=== PATIENT | male | born 1960 | race African-American/Black ===

== ENCOUNTER 2017-01-03 09:44 | Observation (INO) | payer OTHER ==
[2017-01-03] VITALS (10 sets, daily range): BP systolic 119–164; BP diastolic 71–84; PULSE 60–70; RESP 13–24; TEMP 97.7–98; O2SAT 95–100
[~2017-01-03] VITALS: Ht 175.3 cm; Wt 71.5 kg
[~2017-01-03 09:44] MED LIST: 1-ME1LIQ PO; ASPI81TA82 PO; CIAL5TAB PO; LISI-360 PO; MELO7.5T PO
[2017-01-03] MEDS ORDERED: ASPIRIN 81 MG CHEW TAB CHEW ONE (10:00)
[2017-01-03] MEDS ORDERED: SODIUM CHLORIDE 0.9% FLUSH 5 ML FLUSH IVF PRN ×2 (10:00→12:45)
[2017-01-03] MEDS ORDERED: LISI10TA3 PO (10:02)
[2017-01-03] MEDS ORDERED: VITA100T15 PO (10:02)
[2017-01-03] MEDS ORDERED: AMLO5TAB2 PO (10:02)
[2017-01-03] MEDS ORDERED: VITA400T2 PO (10:02)
[2017-01-03] MEDS ORDERED: ASPI81TA81 PO (10:02)
[2017-01-03] MEDS: NITROGLYCERIN 0.4 MG SL 25 TABS/BTL SL SCH ×3 (10:21→11:37)
--- NOTE | 2017-01-03 10:25 | RADRPT ---
EXAM DATE/TIME: 01/03/2017 10:10 [place] COMPARISON: No previous studies available for comparison. INDICATIONS : Short of breath, right side chest pain MEDICAL HISTORY : Hypertension. Diabetes mellitus type II. SURGICAL HISTORY : None. ENCOUNTER: Initial ACUITY: 2 weeks PAIN SCORE: 7/10 LOCATION: Bilateral chest FINDINGS: A single view of the chest demonstrates the lungs to be symmetrically aerated without evidence of mas s, infiltrate or effusion. The cardiomediastinal contours are unremarkable. Osseous structures are intact. CONCLUSION: No evidence of acute cardiopulmonary disease. Brayden Brock MD on January 03, 2017 at 10:23 Board Certified Radiologist. This report was verified electronically.
[2017-01-03 10:30] LABS: AUTOMATED NEUTROPHIL # 1.9 TH/MM3 (1.8-7.7); BASOPHIL % 0.5 % (0.0-2.0); EOSINOPHIL # 0.2 TH/MM3 (0-0.4); EOSINOPHIL % 5.5 % (0.0-4.0); HEMATOCRIT 42.2 % (39.0-51.0); HEMO FLAGS DIFF FINAL; LYMPHOCYTE # 1.4 TH/MM3 (1.0-4.8); MEAN CELL VOLUME 92.1 FL (80.0-100.0); MEAN CORPUSCULAR HEMOGLOBIN 31.1 PG (27.0-34.0); MEAN CORPUSCULAR HGB CONC 33.8 % (32.0-36.0); MONO % 17.8 % (0.0-8.0); NEUT % 44.2 % (16.0-70.0); PLATELET COUNT 194 TH/MM3 (150-450); RED BLOOD COUNT 4.58 MIL/MM3 (4.50-5.90); RED CELL DISTRIBUTION WIDTH 15.9 % (11.6-17.2); WHITE BLOOD COUNT 4.4 TH/MM3 (4.0-11.0)
[2017-01-03 10:52] LABS: APTT (PATIENT) 25.7 SEC (24.3-30.1); INTERNATIONAL NORMALIZED RATIO 1.1 RATIO; PROTHROMBIN TIME - PATIENT 11.9 SEC (9.8-11.6)
[2017-01-03 10:56] LABS: ANION GAP 6 MEQ/L (5-15); AST (GOT) 17 U/L (15-37); BICARBONATE 29.2 MEQ/L (21.0-32.0); BLOOD UREA NITROGEN 15 MG/DL (7-18); CHLORIDE 106 MEQ/L (98-107); GLOMERULAR FILTRATION RATE 71 ML/MIN (>89); POTASSIUM 4.1 MEQ/L (3.5-5.1); SODIUM (NA) 141 MEQ/L (136-145)
[2017-01-03 11:01] LABS: ALKALINE PHOSPHATASE 72 U/L (45-117); ALT (GPT) 20 U/L (12-78); CREATINE KINASE 265 U/L (39-308); TOTAL BILIRUBIN ADULT 0.4 MG/DL (0.2-1.0)
[2017-01-03 11:14] LABS: CKMB 2.4 NG/ML (0.5-3.6)
--- NOTE | 2017-01-03 11:50 | PD ---
HPI Chief Complaint: Chest Pain Time Seen by Provider: 09:59 Travel History International Travel<30 days: No Contact w/Intl Traveler<30days: No Traveled to known affect area: No History of Present Illness HPI Patient 56-year-old male presents with intermittent chest pain for the past few weeks. Patient states Fairly substantial this morning. Patient describes a tight sensation in the left side of his chest radiating down his left arm, it was some nausea as well as shortness breath without any vomiting. Patient states he went to the [facility] and was told he had an abnormal EKG and was set up with a specialist but nontoxic 25 January. Patient states he continues to have pain intermittently. Patient states he was just sitting doing nothing when the pain started today. Questionable history of cocaine use in the past per the review the records.. Patient is a cigar smoker, history diabetes have blood pressure and high cholesterol. Last stress test according to records was 2010. PFSH Past Medical History Hx Anticoagulant Therapy: Yes Heart Rhythm Problems: Yes (PATIENT STATES HIS HEART OCCASSIONALY RACES) Cardiac Catheterization: No Cardiovascular Problems: Yes High Cholesterol: Yes Chest Pain: Yes Congestive Heart Failure: No Diabetes: Yes Patient Takes Glucophage: Yes Diminished Hearing: No Hypertension: Yes Respiratory: Yes Myocardial Infarction: No Past Surgical History Coronary Artery Bypass Graft: No Social History Alcohol Use: No Tobacco Use: Yes (CIGAR) Substance Use: No Allergies-Medications (Allergen,Severity, Reaction): Coded Allergies: Bee Sting (Verified Allergy, Severe, HIVES, 01/03/17) Epinephrine (Verified Allergy, Severe, SEIZURES, 01/03/17) Reported Meds & Prescriptions Reported Meds & Active Scripts Active Reported Vitamin D (Cholecalciferol) 400 Unit Tab Unknown Dose PO DAILY Vitamin B12 (Cyanocobalamin) 100 Mcg Tab Unknown Dose PO DAILY Lisinopril 10 Mg Tab 10 Mg PO DAILY Amlodipine (Amlodipine Besylate) 5 Mg Tab 5 Mg PO DAILY Aspir-81 (Aspirin) 81 Mg Tabdr 81 Mg PO DAILY Review of Systems Except as stated in HPI: all other systems reviewed are Neg Physical Exam Narrative GENERAL: Well-developed well-nourished no apparent distress SKIN: Warm and dry. HEAD: Atraumatic. Normocephalic. EYES: Pupils equal and round. No scleral icterus. No injection or drainage. ENT: No nasal bleeding or discharge. Mucous membranes pink and moist. NECK: Trachea midline. No JVD. CARDIOVASCULAR: Regular rate and rhythm. No murmur appreciated. 2+ bilateral equal pulses in all 4 extremities. RESPIRATORY: No accessory muscle use. Clear to auscultation. Breath sounds equal bilaterally. GASTROINTESTINAL: Abdomen soft, non-tender, nondistended. Hepatic and splenic margins not palpable. MUSCULOSKELETAL: No obvious deformities. No clubbing. No cyanosis. No edema. NEUROLOGICAL: Awake and alert. No obvious cranial nerve deficits. Motor grossly within normal limits. Normal speech. PSYCHIATRIC: Appropriate mood and affect; insight and judgment normal. Data Data Last Documented VS Vital Signs Date Time Temp Pulse Resp B/P Pulse Ox O2 Delivery O2 Flow Rate FiO2 01/03/17 11:39 64 15 126/73 99 Nasal Cannula 2.0 01/03/17 09:48 97.7 Orders Electrocardiogram (01/03/17 ) Ckmb (Isoenzyme) Profile (01/03/17 09:59) Complete Blood Count With Diff (01/03/17 09:59) Comprehensive Metabolic Panel (01/03/17 09:59) Magnesium (Mg) (01/03/17 09:59) Prothrombin Time / Inr (Pt) (01/03/17 09:59) Act Partial Throm Time (Ptt) (01/03/17 09:59) Troponin I (01/03/17 09:59) Lipase (01/03/17 09:59) Chest, Single Ap (01/03/17 09:59) Ecg Monitoring (01/03/17 09:59) Bilateral Bp Monitoring (01/03/17 09:59) Iv Access Insert/Monitor (01/03/17 09:59) Oximetry (01/03/17 09:59) Oxygen Administration (01/03/17 09:59) Sodium Chloride 0.9% Flush (Ns Flush) (01/03/17 10:00) Nitroglycerin Sl (Nitrostat Sl) (01/03/17 10:00) Aspirin Chew (Aspirin Chew) (01/03/17 10:00) CKMB (01/03/17 10:15) CKMB% (01/03/17 10:15) Admit Order (Ed Use Only) (01/03/17 ) Drug Screen, Random Urine (01/03/17 11:38) Labs Laboratory Tests Test 01/03/17 10:15 White Blood Count 4.4 TH/MM3 Red Blood Count 4.58 MIL/MM3 Hemoglobin 14.3 GM/DL Hematocrit 42.2 % Mean Corpuscular Volume 92.1 FL Mean Corpuscular Hemoglobin 31.1 PG Mean Corpuscular Hemoglobin 33.8 % Concent Red Cell Distribution Width 15.9 % Platelet Count 194 TH/MM3 Mean Platelet Volume 8.0 FL Neutrophils (%) (Auto) 44.2 % Lymphocytes (%) (Auto) 32.0 % Monocytes (%) (Auto) 17.8 % Eosinophils (%) (Auto) 5.5 % Basophils (%) (Auto) 0.5 % Neutrophils # (Auto) 1.9 TH/MM3 Lymphocytes # (Auto) 1.4 TH/MM3 Monocytes # (Auto) 0.8 TH/MM3 Eosinophils # (Auto) 0.2 TH/MM3 Basophils # (Auto) 0.0 TH/MM3 CBC Comment DIFF FINAL Differential Comment Prothrombin Time 11.9 SEC Prothromb Time International 1.1 RATIO Ratio Activated Partial 25.7 SEC Thromboplast Time Sodium Level 141 MEQ/L Potassium Level 4.1 MEQ/L Chloride Level 106 MEQ/L Carbon Dioxide Level 29.2 MEQ/L Anion Gap 6 MEQ/L Blood Urea Nitrogen 15 MG/DL Creatinine 1.27 MG/DL Estimat Glomerular Filtration 71 ML/MIN Rate Random Glucose 85 MG/DL Calcium Level 8.9 MG/DL Magnesium Level 2.0 MG/DL Total Bilirubin 0.4 MG/DL Aspartate Amino Transf 17 U/L (AST/SGOT) Alanine Aminotransferase 20 U/L (ALT/SGPT) Alkaline Phosphatase 72 U/L Total Creatine Kinase 265 U/L Creatine Kinase MB 2.4 NG/ML Troponin I 0.04 NG/ML Total Protein 7.5 GM/DL Albumin 3.7 GM/DL Lipase 158 U/L [facility] Medical Decision Making Medical Screen Exam Complete: Yes Emergency Medical Condition: Yes Interpretation(s) EKG shows normal sinus rhythm with normal axis normal R-wave progression. Voltage criteria for LVH, there are Q waves in II, III, and F aVF probable inferior infarct. There is less than a half a millimeter ST elevation in II, III, and F aVF without any reciprocal changes. This could be normal variant or could be early ischemia. This is an abnormal EKG. Comparison to 06/03/2011 shows no change. Differential Diagnosis ACS, AMI, dissection highly unlikely, PE highly unlikely, cocaine chest pain. Narrative Course Patient roomed in emergency department, who took aspirin 81 mg prior to arrival. Have rented out and made a full dose aspirin. Patient was also given nitroglycerin with some relief. Initial troponin is 0.04, the remainder of his labs and chest x-ray are reassuring. Discussed the patient for chest pain center observation and he is agreeable. Diagnosis Primary Impression: Chest pain Qualified Code: R07.9 - Chest pain, unspecified type Admitting Information Admitting Physician Requests: Observation Condition: Stable Darek iLve MD Jan 03, 2017 11:50
[2017-01-03] MEDS ORDERED: ONDANSETRON HCL 4 MG/2 ML VIAL IV PRN (12:45)
[2017-01-03] MEDS ORDERED: NITROGLYCERIN 0.4 MG SL 25 TABS/BTL SL PRN (12:45)
[2017-01-03] MEDS ORDERED: ACETAMINOPHEN 500 MG CPLT PO PRN (12:45)
[2017-01-03 12:59] LABS: AMPHETAMINE, URINE NEG (NEG); BARBITURATES, URINE NEG (NEG); COCAINE, URINE NEG (NEG)
--- NOTE | 2017-01-03 13:25 | EKG ---
Date Performed: 01/03/2017 Time Performed: 09:56:00 PTAGE: 56 years EKG: SINUS BRADYCARDIA VOLTAGE CRITERIA FOR LVH, CONSIDER NORMAL VARIANT NONSPECIFIC T-WAVE ABNO RMALITY BORDERLINE ECG NO PREVIOUS TRACING DOCTOR: Daryl Fuchs Interpretating Date/Time 01/03/2017 13:25:22
[2017-01-03 14:14] LABS: CREATINE KINASE 223 U/L (39-308)
[2017-01-03] MEDS ORDERED: KETOROLAC TROMETHAMINE 30 MG/ML (IVP) VIAL IV PUSH ONE (14:15)
[2017-01-03 14:26] LABS: CKMB 1.9 NG/ML (0.5-3.6)
--- NOTE | 2017-01-03 16:02 | HHI.DCPOC ---
Discharge Care Plan Diagnosis: (1) Musculoskeletal chest pain Goals to Promote Your Health * To prevent worsening of your condition and complications * To maintain your health at the optimal level Directions to Meet Your Goals Take your medications as prescribed Follow your dietary instruction Follow activity as directed Keep your appointments as scheduled Take your immunizations and boosters as scheduled If your symptoms worsen call your PCP, if no PCP go to Urgent Care Center or Emergency Room Smoking is Dangerous to Your Health. Avoid second hand smoke Call the 24-hour hour crisis hotline for domestic abuse at [place] Jan 03, 2017 16:02
--- NOTE | 2017-01-03 16:50 | TR ---
Date Performed: 01/03/2017 Time Performed: 15:40:08 DOCTOR: Torito Oliveira DRUG LIST: CLINICAL HISTORY: CHEST PAIN REASON FOR TEST: Chest pain REASON FOR ENDING: OBSERVATION: CONCLUSION: Anthony protocol completed. Stopped sec to exceeding target heart rate and leg fatigue . Maximum SP=923 Target HR Achieved=99.0% Maximum EZ=502/76 Total Exercise Time=10:01. No ectopy. No reprod chest discomfort. No st t seg changes to sugg ischemia. Good exercise tolerance. Normal bp res ponse. Recovery quick and unremarkable. COMMENTS: Conclusion: Normal treadmill exercise. No evidence of ischemia.
--- NOTE | 2017-01-03 18:07 | HHI.HP ---
HPI Primary Care Physician Dr. Paulette FORD Chief Complaint Chest discomfort History of Present Illness 56-year-old female with known diabetes, hyperlipidemia, and hyper tension presents to the emergency room with an onset of chest discomfort 2 weeks ago. States he was moving debris and experienced a quick sharp pain. Located in his left anterior chest. Pain has waxed and waned for 2 weeks. Described as sharp pain severity 8/10. No radiation of pain. No associated symptoms. Precipitating factors he believes moving debris. Relieving factors has been heating pad however [id number] ibuprofen and Tylenol has not helped. Review of Systems General: No fatigue,weakness, fever, chills, or recent illness change in appetite HEENT: No MENDEZ, no vision changes, no nasal congestion or drainage, no dysphasia CV: As stated above. Current chest pressure 5/10. No palpitations, intermittent leg pain, dizziness RESP: No SOB, cough, wheeze, or recent URI GI: No nausea or vomiting, bowel changes, diarrhea, constipation, pain, distention, melena, blood in the stool. No change in appetite, no unintentional weight gain or weight loss EXT: No lower leg edema, no paraesthesias MS: No discomfort or change in ROM NEURO: No change in memory, dizziness, difficulty with balance, LOC, motor/ sensory deficits PSYCH: No anxiety, depression, suicidal ideation SKIN: No rashes, no concerning lesions Past Family Social History Allergies: Coded Allergies: Bee Sting (Verified Allergy, Severe, HIVES, 01/03/17) Epinephrine (Verified Allergy, Severe, SEIZURES, 01/03/17) Past Medical History Diabetes, hyperlipidemia, hypertension, Past Surgical History None Reported Medications Reported Meds & Active Scripts Active Reported Vitamin D (Cholecalciferol) 400 Unit Tab Unknown Dose PO DAILY Vitamin B12 (Cyanocobalamin) 100 Mcg Tab Unknown Dose PO DAILY Lisinopril 10 Mg Tab 10 Mg PO DAILY Amlodipine (Amlodipine Besylate) 5 Mg Tab 5 Mg PO DAILY Aspir-81 (Aspirin) 81 Mg Tabdr 81 Mg PO DAILY Metformin 500mg BID Family History Noncontributory for early onset cardiovascular disease Social History Smokes cigars 3 a day. Quit smoking cigarettes 6 years ago. Before smoking smoked 1-2 packs daily. Denies any alcohol or illegal drug use. Has known hypertension and diabetes. Was told last week he has hyperlipidemia no medications provided at this time. Has taken statins in the past. No exercise. Past cardiac testing Stress test in 2013 was unremarkable. No recent cardiac testing. Physical Exam Vital Signs Vital Signs Date Time Temp Pulse Resp B/P Pulse Ox O2 Delivery O2 Flow Rate FiO2 01/03/17 14:23 99 21 01/03/17 13:27 98.0 60 19 125/77 100 01/03/17 13:00 60 01/03/17 11:59 18 01/03/17 11:58 64 18 119/71 99 Nasal Cannula 2.0 01/03/17 11:39 64 15 126/73 99 Nasal Cannula 2.0 01/03/17 10:58 62 13 139/76 100 Nasal Cannula 2.0 01/03/17 10:17 70 163/82 142/84 01/03/17 10:11 95 Room Air 01/03/17 10:11 Nasal Cannula 2.0 01/03/17 10:03 63 24 163/82 100 Room Air 01/03/17 09:48 97.7 64 16 164/80 99 Room Air Physical Exam GENERAL: Alert WN, WD, NAD, pleasant, male HEAD: NC, AT EYES: Sclera clear, conjunctiva without injection, pupils equal and round ENT: Mucous membranes pink and moist NECK: Supple, no masses, trachea midline CV: RRR, without murmur, rub, gallop, no JVD, S1-S2 no S3-S4. No carotid or femoral bruits RESP: Clear lungs throughout bilateral, no crackles, wheeze, rhonchi, symmetrical chest rise, nonlabored, able to speak in full sentences ABD: Soft, NT, ND, no masses, positive bowel tones BACK: No CVAT, no scoliosis EXT: Pulses +24, no dependent edema MS: Normal tone 4 extremities, nontender, no obvious deformities, full range of motion NEURO: CN II through CN XII grossly intact, motor strength 5/5, gait WNL PSYCH: A+O 3, pleasant affect, appropriate speech, appropriate mood and affect , insight and judgment SKIN: Normal turgor, normal texture, no lesions, no rashes Laboratory Laboratory Tests Test 01/03/17 01/03/17 01/03/17 10:15 12:35 13:25 White Blood Count 4.4 Red Blood Count 4.58 Hemoglobin 14.3 Hematocrit 42.2 Mean Corpuscular Volume 92.1 Mean Corpuscular Hemoglobin 31.1 Mean Corpuscular Hemoglobin 33.8 Concent Red Cell Distribution Width 15.9 Platelet Count 194 Mean Platelet Volume 8.0 Neutrophils (%) (Auto) 44.2 Lymphocytes (%) (Auto) 32.0 Monocytes (%) (Auto) 17.8 Eosinophils (%) (Auto) 5.5 Basophils (%) (Auto) 0.5 Neutrophils # (Auto) 1.9 Lymphocytes # (Auto) 1.4 Monocytes # (Auto) 0.8 Eosinophils # (Auto) 0.2 Basophils # (Auto) 0.0 CBC Comment DIFF FINAL Differential Comment Prothrombin Time 11.9 Prothromb Time International 1.1 Ratio Activated Partial 25.7 Thromboplast Time Sodium Level 141 Potassium Level 4.1 Chloride Level 106 Carbon Dioxide Level 29.2 Anion Gap 6 Blood Urea Nitrogen 15 Creatinine 1.27 Estimat Glomerular Filtration 71 Rate Random Glucose 85 Calcium Level 8.9 Magnesium Level 2.0 Total Bilirubin 0.4 Aspartate Amino Transf 17 (AST/SGOT) Alanine Aminotransferase 20 (ALT/SGPT) Alkaline Phosphatase 72 Total Creatine Kinase 265 223 Creatine Kinase MB 2.4 1.9 Troponin I 0.04 0.04 Total Protein 7.5 Albumin 3.7 Lipase 158 Urine Opiates Screen NEG Urine Barbiturates Screen NEG Urine Amphetamines Screen NEG Urine Benzodiazepines Screen NEG Urine Cocaine Screen NEG Urine Cannabinoids Screen NEG Result Diagram: 01/03/17 1015 01/03/17 1015 Imaging Last Impressions Chest X-Ray 01/03/17 0959 Signed Impressions: Service Date/Time: Tuesday, January 03, 2017 10:10 - CONCLUSION: No evidence of acute cardiopulmonary disease. Brayden Brock MD Course EKGs 2 EKGs show normal sinus rhythm with early repolarization Assessment and Plan Assessment and Plan #1 chest pain- admitted to chest pain center. Was ruled out with 2 sets of EKGs and cardiac enzymes. Was seen and evaluated by Dr. Torito Oliveira. Completed exercise stress test. Stress test unremarkable with no signs of ischemia. Will be discharged later this afternoon. #2 musculoskeletal painToradol 30 mg IV 1 dose. Instructed patient to use [id number] ibuprofen or Aleve as needed for pain, continue to use heating pad to chest wall. Follow with primary care provider if symptoms do not improve. [facility] Jan 03, 2017 18:07
[2017-01-03] MEDS ORDERED: SODIUM CHLORIDE 0.9% FLUSH 5 ML FLUSH IVF SCH (21:00)
[2017-01-04] MEDS ORDERED: ASPIRIN 325 MG TAB PO SCH (09:00)
--- NOTE | 2017-01-05 07:36 | EKG ---
Date Performed: 01/03/2017 Time Performed: 13:18:36 PTAGE: 56 years EKG: SINUS BRADYCARDIA EARLY REPOLARIZATION BORDERLINE ECG Since PREVIOUS TRACING , no significant change noted PREVIOUS TRACIN01/03/2017 09.56 DOCTOR: Yuliet Lee Interpretating Date/Time 01/05/2017 07:35:19
== END 2017-01-03 16:55 | disposition home or self-care (01) ==
LOC: NEPA 09:44 → NEDA 11:40 → NEPHCDU 13:01
DX: R07.89 Other chest pain (principal); M79.1 Myalgia; I10 Essential (primary) hypertension; E78.5 Hyperlipidemia, unspecified; E11.9 Type 2 diabetes mellitus without complications; E78.00 Pure hypercholesterolemia, unspecified; R94.31 Abnormal electrocardiogram [ECG] [EKG]; F17.290 Nicotine dependence, other tobacco product, uncomplicated
CPT/HCPCS: 71010; 80053; 80307; 82550; 82552; 83690; 83735; 84484; 85025; 85610; 85730; 93005; 93017; 99285; G0378; J1885